=== PATIENT | male | born 1945 | race Caucasian/White ===

== ENCOUNTER 2022-09-21 10:17 | Outpatient (CLI) | payer MEDICARE, SELFPAY ==
[2022-09-21 17:43] LABS: Chloride* 106 mmol/L (96-114)
[2022-09-21 17:44] LABS: Potassium* 4.5 mmol/L (3.6-5.1); Sodium* 140 mmol/L (135-149)
[2022-09-21 17:46] LABS: Carbon Dioxide* 29 mmol/L (20-32); Cholesterol* 193 mg/dL (90-199); Creatinine* 0.8 mg/dL (0.5-1.5); Estimated Glomerular Filt Rate 90 ml/min
[2022-09-21 17:47] LABS: Blood Urea Nitrogen* 21 mg/dL (7-30); Calcium* 9.2 mg/dL (8.4-10.6); Glucose* 103 mg/dL (60-115); HDL Cholesterol* 45 mg/dL (>=40); LDL Cholesterol Calculated 114 mg/dL (<100); Triglycerides* 168 mg/dL (40-149)
[2022-09-21 18:16] LABS: PSA Screen* 0.92 ng/mL (0.10-4.00)
== END 2022-09-21 10:18 | disposition home or self-care (01) ==
PROVIDERS: PCP Family Medicine; Visit Provider Family Medicine
DX: Z13.1 Encounter for screening for diabetes mellitus (principal); Z12.5 Encounter for screening for malignant neoplasm of prostate; Z13.6 Encounter for screening for cardiovascular disorders
CPT/HCPCS: 80048; 80061; 84153

== ENCOUNTER 2023-12-31 09:43 | Outpatient (CLI) | payer MEDICARE, SELFPAY | END 2023-12-31 09:44 | disposition home or self-care (01) | PROVIDERS: PCP Family Medicine; Visit Provider Family Medicine | DX: E78.5 Hyperlipidemia, unspecified (principal); I10 Essential (primary) hypertension; N40.0 Benign prostatic hyperplasia without lower urinary tract symptoms; Z13.21 Encounter for screening for nutritional disorder; Z12.5 Encounter for screening for malignant neoplasm of prostate | CPT/HCPCS: 80048; 80061; 82607; G0103 ==

== ENCOUNTER 2024-12-17 14:30 | Outpatient (CLI) | payer MEDICARE, SELFPAY | END 2024-12-17 14:31 | disposition home or self-care (01) | PROVIDERS: PCP Family Medicine; Visit Provider Emergency Medicine | DX: I10 Essential (primary) hypertension (principal); E78.5 Hyperlipidemia, unspecified; I48.0 Paroxysmal atrial fibrillation; R58 Hemorrhage, not elsewhere classified | CPT/HCPCS: 80053; 85730 ==

== ENCOUNTER 2025-02-02 11:06 | Outpatient (CLI) | payer MEDICARE, SELFPAY | END 2025-02-02 11:07 | disposition home or self-care (01) | PROVIDERS: PCP Family Medicine; Visit Provider Family Medicine | DX: E78.2 Mixed hyperlipidemia (principal); Z12.5 Encounter for screening for malignant neoplasm of prostate | CPT/HCPCS: 80061; G0103 ==